=== PATIENT | male | born 1990 | race Caucasian/White ===

== ENCOUNTER 2016-08-22 18:39 | Emergency (ER) | END 2016-08-22 19:17 | disposition left against medical advice (07) | LOC: UCCORT 18:39 | DX: S61.219A Laceration without foreign body of unspecified finger without damage to nail, initial encounter (principal); W45.8XXA Other foreign body or object entering through skin, initial encounter; Z53.20 Procedure and treatment not carried out because of patient's decision for unspecified reasons ==

== ENCOUNTER 2018-08-25 15:41 | Emergency (ER) | payer BC ==
[2018-08-25 16:15] VITALS: BP 133/97
--- NOTE | 2018-08-25 16:17 | UC ---
General HPI - HPI Summary HPI Summary: pt found a tick on his R hip area today and removed it. he then cleaned the site. duration of bite is not known. no rash, fever, fatigue or joint pains. - History of Current Complaint Stated Complaint: TICK Time Seen by Provider: 08/25/18 16:04 Hx Obtained From: Patient - Allergy/Home Medications Allergies/Adverse Reactions: Allergies Allergy/AdvReac Type Severity Reaction Status Date / Time Penicillins Allergy Unknown Verified 08/25/18 16:16 Reaction Details Home Medications: Home Medications Ibuprofen TAB* [Motrin TAB* 600 MG] 600 mg PO ONCE PRN 08/25/18 [History Confirmed 08/25/18] PMH/Surg Hx/FS Hx/Imm Hx Previously Healthy: Yes - Family History Known Family History: Positive: Non-Contributory - Social History Lives: With Family Substance Use Type: None Review of Systems All Other Systems Reviewed And Are Negative: No Constitutional: Negative: Fever, Fatigue Skin: Negative: Rash Musculoskeletal: Negative: Arthralgia Physical Exam Triage Information Reviewed: Yes Appearance: Well-Appearing Vital Signs Reviewed: Yes Eyes: Positive: Conjunctiva Clear Respiratory: Positive: Lungs clear Cardiovascular: Positive: RRR Abdomen Description: Positive: Nontender Musculoskeletal: Positive: ROM Intact Neurological: Positive: Alert Psychological: Positive: Age Appropriate Behavior Skin Exam: Normal, Other - Abrasion R iliac creast area where tick removed. Skin: Negative: Rashes Course/Dx - Course Course Of Treatment: no hx HTN. info on hypertension and f/u being given. - Diagnoses Provider Diagnosis: Tick bite Discharge - Sign-Out/Discharge Documenting (check all that apply): Patient Departure All imaging exams completed and their final reports reviewed: No Studies - Discharge Plan Condition: Stable Disposition: HOME Prescriptions: DOXYcycline CAP(*) [DOXYcycline 100MG CAP(*)] 200 mg PO ONCE #2 cap Patient Education Materials: Tick Bite (ED), Hypertension (ED) Referrals: OSIEL Mcginnis [Medical Doctor] - As Soon As Possible Additional Instructions: FOLLOW UP FOR REPEAT BLOOD PRESSURE EVALUATION. - Billing Disposition and Condition Condition: STABLE Disposition: Home
== END 2018-08-25 16:31 | disposition home or self-care (01) ==
LOC: UCCORT 15:41
DX: S70.261A Insect bite (nonvenomous), right hip, initial encounter (principal); X58.XXXA Exposure to other specified factors, initial encounter; Z88.0 Allergy status to penicillin
CPT/HCPCS: 99212; G0463